=== PATIENT | female | born 1960 | race Caucasian/White ===

== ENCOUNTER → 2016-05-02 | Outpatient (CLI) | payer OTHER, MEDICAID ==
[~2016-05-02] MED LIST: ALBU8.5H3 INH; ASPI-496 PO; ATEN25TA PO; CEPH-368 PO; CHOL10003 PO; CIPR500T87 PO; DOCU-30 PO; ENAL20TA PO; FLUT10.6 INH; IBUP-1222 PO; IBUP800T PO; INSU100C SQ-INSULIN; INSU100V8 SQ; IRON SUPPLIMENT PO; LACT1TAB6 PO; LOVA20TA2 PO; METF10002 PO; METF500T4 PO; OMEP20TA2 PO; OXYC-302 PO; PREG150C PO; TRAM50TA2 PO; potassium otc PO
== END | disposition home or self-care (01) ==
LOC: WOUND 09:30
PROVIDERS: ATTEND Internal Medicine
DX: E11.621 Type 2 diabetes mellitus with foot ulcer (principal); E11.622 Type 2 diabetes mellitus with other skin ulcer; L97.511 Non-pressure chronic ulcer of other part of right foot limited to breakdown of skin; L97.811 Non-pressure chronic ulcer of other part of right lower leg limited to breakdown of skin; E78.5 Hyperlipidemia, unspecified; F12.90 Cannabis use, unspecified, uncomplicated; E11.22 Type 2 diabetes mellitus with diabetic chronic kidney disease; I12.9 Hypertensive chronic kidney disease with stage 1 through stage 4 chronic kidney disease, or unspecified chronic kidney disease; N18.9 Chronic kidney disease, unspecified; E66.01 Morbid (severe) obesity due to excess calories; Z68.38 Body mass index [BMI] 38.0-38.9, adult; E11.42 Type 2 diabetes mellitus with diabetic polyneuropathy; J45.909 Unspecified asthma, uncomplicated; Z79.4 Long term (current) use of insulin; Z87.891 Personal history of nicotine dependence; Z85.038 Personal history of other malignant neoplasm of large intestine; Z85.05 Personal history of malignant neoplasm of liver; Z92.21 Personal history of antineoplastic chemotherapy
CPT/HCPCS: 97597

== ENCOUNTER → 2016-05-09 | Outpatient (CLI) | payer OTHER, MEDICAID | END | disposition home or self-care (01) | LOC: WOUND 08:29 | PROVIDERS: ATTEND Internal Medicine | DX: S81.811D Laceration without foreign body, right lower leg, subsequent encounter (principal); E11.40 Type 2 diabetes mellitus with diabetic neuropathy, unspecified; Z92.21 Personal history of antineoplastic chemotherapy; Z85.038 Personal history of other malignant neoplasm of large intestine; Z85.05 Personal history of malignant neoplasm of liver; X58.XXXD Exposure to other specified factors, subsequent encounter; Z87.891 Personal history of nicotine dependence | CPT/HCPCS: 97597 ==

== ENCOUNTER → 2016-05-16 | Outpatient (CLI) | payer OTHER, MEDICAID | END | disposition home or self-care (01) | LOC: WOUND 09:30 | PROVIDERS: ATTEND Surgery | DX: E11.622 Type 2 diabetes mellitus with other skin ulcer (principal); L97.811 Non-pressure chronic ulcer of other part of right lower leg limited to breakdown of skin; E11.40 Type 2 diabetes mellitus with diabetic neuropathy, unspecified; E78.5 Hyperlipidemia, unspecified; Z92.21 Personal history of antineoplastic chemotherapy; Z85.05 Personal history of malignant neoplasm of liver; Z85.038 Personal history of other malignant neoplasm of large intestine; Z87.891 Personal history of nicotine dependence; E11.22 Type 2 diabetes mellitus with diabetic chronic kidney disease; I12.9 Hypertensive chronic kidney disease with stage 1 through stage 4 chronic kidney disease, or unspecified chronic kidney disease; N18.9 Chronic kidney disease, unspecified; E11.42 Type 2 diabetes mellitus with diabetic polyneuropathy; E66.01 Morbid (severe) obesity due to excess calories; E46 Unspecified protein-calorie malnutrition; Z68.38 Body mass index [BMI] 38.0-38.9, adult | CPT/HCPCS: G0463; WOU0463 ==

== ENCOUNTER → 2016-05-25 | Outpatient (CLI) | payer OTHER, MEDICAID ==
[~2016-05-25] MED LIST changes: +FURO20TA3 PO; +GUAI-44 PO; +LOPE1LIQ6 PO; +SERT50TA5 PO; +SPIR25TA PO
== END | disposition home or self-care (01) ==
LOC: WOUND 11:13
PROVIDERS: ATTEND Surgery
DX: E11.622 Type 2 diabetes mellitus with other skin ulcer (principal); L97.811 Non-pressure chronic ulcer of other part of right lower leg limited to breakdown of skin; E11.40 Type 2 diabetes mellitus with diabetic neuropathy, unspecified; E78.5 Hyperlipidemia, unspecified; Z85.038 Personal history of other malignant neoplasm of large intestine; Z87.891 Personal history of nicotine dependence
CPT/HCPCS: 99214; G0463; WOU0463

== ENCOUNTER 2016-05-28 08:22 | Inpatient (IN) | payer OTHER, MEDICAID ==
[~2016-05-28] VITALS: Ht 185.4 cm; Wt 169.7 kg
[~2016-05-28 08:22] MED LIST changes: -FURO20TA3 PO; -GUAI-44 PO; -LOPE1LIQ6 PO; -SERT50TA5 PO; -SPIR25TA PO
[2016-05-28] MEDS ORDERED: SODIUM CHLORIDE 0.9% 1,000 ML IV ONE (08:46)
[2016-05-28] MEDS ORDERED: SODIUM CHLORIDE FLUSH 10ML SYR IVF ONE ×2 (09:00→11:00)
[2016-05-28 09:44] LABS: ASPARTATE AMINO TRANSFERASE 22 U/L (15-37); BLOOD UREA NITROGEN 29 mg/dL (7-18)
[2016-05-28 09:58] LABS: DIFF TOTAL CELLS COUNTED 100 CELL DIFF
[2016-05-28 10:00] LABS: POLYCHROMASIA 1+
[2016-05-28] MEDS ORDERED: SODIUM POLY SULFONATE UDC 15 GM/60 ML PO ONE (10:00)
[2016-05-28] MEDS ORDERED: CALCIUM CHLORIDE 10%, 10ML SYR IVPush ONE (10:00)
[2016-05-28] MEDS ORDERED: INSULIN REGULAR 100 UNITS/ML, 3ML VIAL IVPush ONE (10:00)
[2016-05-28] MEDS ORDERED: DEXTROSE 50%, 50ML SYRINGE IVPush ONE (10:00)
[2016-05-28 10:01] LABS: ANISOCYTOSIS 1+
[2016-05-28] MEDS ORDERED: INSU100C SQ-INSULIN (10:10)
[2016-05-28] MEDS ORDERED: LOPE1LIQ6 PO (10:11)
[2016-05-28 10:24] LABS: VERIFY COUNTS? YES
[2016-05-28] MEDS ORDERED: DEXTROSE 50%, 50ML SYRINGE ONE (10:46)
[2016-05-28] MEDS ORDERED: CALCIUM CHLORIDE 10%, 10ML SYR ONE (10:46)
[2016-05-28] MEDS ORDERED: SODIUM POLYSTYRENE SULFONATE ORAL SUSP ONE (10:47)
[2016-05-28] MEDS ORDERED: INSULIN REGULAR 100 UNITS/ML, 3ML VIAL ONE ×2 (10:49→11:06)
[2016-05-28] MEDS ORDERED: INSULIN REGULAR 100 UNITS/ML, 3ML VIAL SQ-INSULIN SCH ×2 (11:00→13:04)
[2016-05-28] MEDS ORDERED: IBUPROFEN 200 MG TABLET PO PRN (11:00)
[2016-05-28] MEDS ORDERED: ACETAMINOPHEN 325 MG TABLET PO PRN (11:00)
[2016-05-28] MEDS ORDERED: LOPERAMIDE 2 MG CAPSULE PO PRN (11:00)
[2016-05-28] MEDS ORDERED: MORPHINE SULFATE 4 MG/ML, 1ML IVPush PRN (11:00)
[2016-05-28] MEDS: HEPARIN 5,000 UNITS/ML, 1ML SQ SCH ×2 (11:00→21:38)
[2016-05-28] MEDS ORDERED: TEMPLATE NON-FORMULARY MED. (Albuterol Sulfate (Proair Hfa) 2 PUFFS) INH PRN (11:00)
[2016-05-28] MEDS ORDERED: ENALAPRILAT 1.25 MG/ML, 2ML IVPush PRN (11:00)
[2016-05-28] MEDS ORDERED: ONDANSETRON 2MG/ML, 2ML IVP PRN (11:00)
[2016-05-28] MEDS ORDERED: TEMPLATE NON-FORMULARY MED. (Insulin Lispro** (Humalog**) 0 UNITS) SQ-INSULIN PRN (11:00)
[2016-05-28] MEDS ORDERED: DIPHENHYDRAMINE 25 MG CAPSULE PO ONE (11:00)
[2016-05-28] MEDS ORDERED: DEXTROSE 50%, 50ML VIAL IVPush ONE (11:30)
[2016-05-28] MEDS ORDERED: FUROSEMIDE 20 MG/2 ML IV ONE ×2 (11:30→19:00)
[2016-05-28 11:54] LABS: IS PT STATUS REG ER OR PRE ER? YES
[2016-05-28] MEDS ORDERED: FUROSEMIDE 40 MG/4 ML IV ONE ×2 (12:30→16:30)
[2016-05-28] MEDS ORDERED: ALBUTEROL SULFATE 2.5 MG/3 ML NPPB PRN (12:30)
[2016-05-28 13:10] VITALS: BP 170/76
[2016-05-28] MEDS ORDERED: predniSONE 50MG TABLET PO ONE (14:00)
[2016-05-28] MEDS ORDERED: INSULIN REGULAR 100 UNITS/ML, 3ML VIAL SQ-INSULIN STA (14:03)
[2016-05-28 14:20] VITALS: BP 165/75
[2016-05-28 16:52] LABS: BLOOD UREA NITROGEN 32 mg/dL (7-18)
[2016-05-28] MEDS: INSULIN REGULAR 100 UNITS/ML, 3ML VIAL SQ-INSULIN SCH ×2 (17:00→21:00)
[2016-05-28] MEDS ORDERED: TEMPLATE NON-FORMULARY MED. (Insulin Lispro** (Humalog**) 0 UNITS) SQ-INSULIN SCH (17:00)
[2016-05-28 17:05] LABS: ASPARTATE AMINO TRANSFERASE 17 U/L (15-37)
[2016-05-28 17:38] LABS: IS PT STATUS REG ER OR PRE ER? NO
[2016-05-28 19:00] VITALS: BP 178/81
[2016-05-28] MEDS: FERROUS SULFATE 325 MG TABLET PO SCH (19:04)
[2016-05-28] MEDS: LANTUS 30 UNIT SQ-INSULIN SCH (19:05)
[2016-05-28] MEDS ORDERED: LANTUS 30 UNIT SQ SCH (21:00)
[2016-05-28] MEDS ORDERED: INSULIN DETEMIR 100 UNITS/ML, PEN SQ-INSULIN SCH (21:00)
[2016-05-28] MEDS: TEMPLATE NON-FORMULARY MED. (Insulin Lispro** (Humalog**) 0 UNITS) SQ-INSULIN SCH (21:00)
[2016-05-28] MEDS: ATENOLOL 50 MG TABLET PO SCH (21:37)
[2016-05-28] MEDS: LOVASTATIN 40 MG TABLET PO SCH (21:37)
[2016-05-28] MEDS: LACTOBACILLUS CHEW TABLET PO SCH (21:37)
[2016-05-29 03:53] VITALS: BP 165/76
[2016-05-29 04:10] LABS: BLOOD UREA NITROGEN 35 mg/dL (7-18)
[2016-05-29] MEDS: LANTUS 40 UNIT SQ SCH (06:00)
[2016-05-29] MEDS: HEPARIN 5,000 UNITS/ML, 1ML SQ SCH ×3 (06:00→21:50)
[2016-05-29 06:41] VITALS: BP 154/67
[2016-05-29] MEDS: INSULIN REGULAR 100 UNITS/ML, 3ML VIAL SQ-INSULIN SCH ×4 (07:00→21:00)
[2016-05-29] MEDS: TEMPLATE NON-FORMULARY MED. (Insulin Lispro** (Humalog**) 0 UNITS) SQ-INSULIN SCH ×4 (07:00→21:00)
[2016-05-29] MEDS ORDERED: INSULIN ASPART 100 UNITS/ML, PEN SQ-INSULIN SCH ×2 (07:00)
[2016-05-29] MEDS ORDERED: FUROSEMIDE 20 MG/2 ML IV SCH (09:00)
[2016-05-29] MEDS ORDERED: FUROSEMIDE 20 MG/2 ML IV ONE (09:00)
[2016-05-29] MEDS: SERTRALINE 50MG TABLET PO SCH (09:08)
[2016-05-29] MEDS: ATENOLOL 50 MG TABLET PO SCH ×2 (09:09→21:50)
[2016-05-29] MEDS: FUROSEMIDE 20 MG/2 ML IV SCH ×2 (09:09→16:36)
[2016-05-29] MEDS: FERROUS SULFATE 325 MG TABLET PO SCH ×2 (09:09→16:41)
[2016-05-29] MEDS: LACTOBACILLUS CHEW TABLET PO SCH ×2 (09:09→21:50)
[2016-05-29] MEDS: ONDANSETRON ODT 4 MG PO PRN (10:14)
[2016-05-29] MEDS: ENALAPRIL 20MG TABLET PO SCH (10:14)
[2016-05-29] MEDS ORDERED: MAGNESIUM SULFATE PMX 2GM/50ML 50 ML IV ONE (12:00)
[2016-05-29] MEDS ORDERED: SODIUM CHLORIDE 0.45% 500 ML IV ONE (12:30)
[2016-05-29] MEDS ORDERED: SODIUM BICARB 8.4% IVPush SCH (12:30)
[2016-05-29] MEDS ORDERED: SODIUM CHLORIDE 0.45% IVPush SCH (12:30)
[2016-05-29 12:58] VITALS: BP 144/72
[2016-05-29 19:58] VITALS: BP 163/74
[2016-05-29] MEDS: LANTUS 30 UNIT SQ-INSULIN SCH (21:00)
[2016-05-29] MEDS: LOVASTATIN 40 MG TABLET PO SCH (21:50)
[2016-05-30 00:32] VITALS: BP 170/78
[2016-05-30 02:04] VITALS: BP 143/68
[2016-05-30] MEDS: ONDANSETRON ODT 4 MG PO PRN ×2 (05:52→12:49)
[2016-05-30] MEDS: LANTUS 40 UNIT SQ SCH (06:00)
[2016-05-30 06:01] LABS: ASPARTATE AMINO TRANSFERASE 15 U/L (15-37); BLOOD UREA NITROGEN 34 mg/dL (7-18)
[2016-05-30] MEDS: HEPARIN 5,000 UNITS/ML, 1ML SQ SCH (06:18)
[2016-05-30] MEDS ORDERED: LANTUS 40 UNIT SQ SCH (07:00)
[2016-05-30] MEDS: TEMPLATE NON-FORMULARY MED. (Insulin Lispro** (Humalog**) 0 UNITS) SQ-INSULIN SCH ×2 (07:00→11:00)
[2016-05-30 08:14] VITALS: BP 163/73
[2016-05-30] MEDS ORDERED: SPIRONOLACTONE 25 MG TABLET PO SCH (09:00)
[2016-05-30] MEDS ORDERED: FUROSEMIDE 20 MG TABLET PO SCH (09:00)
[2016-05-30] MEDS ORDERED: LOPERAMIDE 2 MG CAPSULE PO SCH (09:00)
[2016-05-30] MEDS: FERROUS SULFATE 325 MG TABLET PO SCH (09:03)
[2016-05-30] MEDS: LACTOBACILLUS CHEW TABLET PO SCH (09:03)
[2016-05-30] MEDS: SERTRALINE 50MG TABLET PO SCH (09:04)
[2016-05-30] MEDS: ATENOLOL 50 MG TABLET PO SCH (09:04)
[2016-05-30] MEDS: ENALAPRIL 20MG TABLET PO SCH (09:04)
[2016-05-30] MEDS ORDERED: FURO20TA3 PO (10:22)
[2016-05-30] MEDS ORDERED: SPIR25TA PO (10:22)
[2016-05-30] MEDS ORDERED: SERT50TA5 PO (10:22)
[2016-05-30] MEDS ORDERED: GUAI-44 PO (14:21)
[2016-05-31] MEDS ORDERED: LANTUS 40 UNIT SQ SCH (07:00)
== END 2016-05-30 14:50 | disposition home health service (06) | DRG 189 ==
LOC: ED 10:34 → EDIP 10:35 → ED 11:59 → 4WST 12:43 → DCLOUNGE 05-30 13:46
PROVIDERS: ADMIT Family Medicine; ATTEND Family Medicine
DX: J81.0 Acute pulmonary edema (principal); C18.9 Malignant neoplasm of colon, unspecified; N17.9 Acute kidney failure, unspecified; N18.4 Chronic kidney disease, stage 4 (severe); E87.2 Acidosis; C78.7 Secondary malignant neoplasm of liver and intrahepatic bile duct; D64.9 Anemia, unspecified; I13.0 Hypertensive heart and chronic kidney disease with heart failure and stage 1 through stage 4 chronic kidney disease, or unspecified chronic kidney disease; E87.5 Hyperkalemia; J45.909 Unspecified asthma, uncomplicated; E11.22 Type 2 diabetes mellitus with diabetic chronic kidney disease; E11.42 Type 2 diabetes mellitus with diabetic polyneuropathy; E61.1 Iron deficiency; E78.5 Hyperlipidemia, unspecified; F32.9 Major depressive disorder, single episode, unspecified; I50.9 Heart failure, unspecified; J44.9 Chronic obstructive pulmonary disease, unspecified; K80.20 Calculus of gallbladder without cholecystitis without obstruction; T45.1X5A Adverse effect of antineoplastic and immunosuppressive drugs, initial encounter; Z79.4 Long term (current) use of insulin; Z79.899 Other long term (current) drug therapy; Z85.038 Personal history of other malignant neoplasm of large intestine; Z85.05 Personal history of malignant neoplasm of liver; Z88.8 Allergy status to other drugs, medicaments and biological substances; Z88.5 Allergy status to narcotic agent; Z82.49 Family history of ischemic heart disease and other diseases of the circulatory system; Z83.3 Family history of diabetes mellitus; Z82.5 Family history of asthma and other chronic lower respiratory diseases; E86.0 Dehydration
CPT/HCPCS: 36415; 71010; 74177; 80048; 80053; 81003; 82040; 82962; 83036; 83605; 83735; 83880; 84100; 84145; 84484; 85025; 87040; 87070; 87205; 93005; 93306; 96361; 96374; 96375; J1644; J1815; J2405; Q0162; J1940; J3475; J7030; J7512; Q0163

== ENCOUNTER 2016-06-04 09:14 | Day surgery (SDC) | payer OTHER, MEDICAID ==
[~2016-06-04] VITALS: Ht 185.4 cm; Wt 158.0 kg
[~2016-06-04 09:14] MED LIST changes: +FURO20TA3 PO; +GUAI-44 PO; +LOPE1LIQ6 PO; +SERT50TA5 PO; +SPIR25TA PO
[2016-06-04 09:37] VITALS: BP 125/79
[2016-06-04] MEDS ORDERED: LIDOCAINE 1%, 20ML ONE (09:49)
[2016-06-04] MEDS ORDERED: PLEASE ENTER HEIGHT AND WEIGHT MC SCH (10:00)
[2016-06-04] MEDS ORDERED: FENTANYL PF 100 MCG/2ML ONE (10:19)
[2016-06-04] MEDS ORDERED: NALOXONE 1 MG/ML, 2ML ONE (10:20)
[2016-06-04] MEDS ORDERED: MIDAZOLAM 1 MG/ML, 5ML ONE (10:20)
[2016-06-04] MEDS ORDERED: FLUMAZENIL 0.1 MG/1 ML, 5ML ONE (10:20)
[2016-06-04] MEDS ORDERED: CEFAZOLIN PMX 1GM/50ML 50 ML ONE (10:53)
== END 2016-06-04 13:07 | disposition home or self-care (01) ==
LOC: RAD 09:14
PROVIDERS: ATTEND Internal Medicine Hematology & Oncology
DX: Z51.11 Encounter for antineoplastic chemotherapy (principal); C18.9 Malignant neoplasm of colon, unspecified; J45.909 Unspecified asthma, uncomplicated; F12.90 Cannabis use, unspecified, uncomplicated; Z85.05 Personal history of malignant neoplasm of liver; D63.0 Anemia in neoplastic disease; I11.9 Hypertensive heart disease without heart failure; E11.40 Type 2 diabetes mellitus with diabetic neuropathy, unspecified
CPT/HCPCS: 36561; 76937; 77001; 82962; C1788; J0690; J1642; J2250; J3010; J3490; 36569; J2310

== ENCOUNTER → 2016-06-06 | Outpatient (CLI) | payer OTHER, MEDICAID | END | disposition home or self-care (01) | LOC: WOUND 10:30 | PROVIDERS: ATTEND Internal Medicine | DX: E11.621 Type 2 diabetes mellitus with foot ulcer (principal); L97.511 Non-pressure chronic ulcer of other part of right foot limited to breakdown of skin; E11.622 Type 2 diabetes mellitus with other skin ulcer; L97.811 Non-pressure chronic ulcer of other part of right lower leg limited to breakdown of skin; E11.40 Type 2 diabetes mellitus with diabetic neuropathy, unspecified; E11.42 Type 2 diabetes mellitus with diabetic polyneuropathy; Z92.21 Personal history of antineoplastic chemotherapy; E78.5 Hyperlipidemia, unspecified; Z85.038 Personal history of other malignant neoplasm of large intestine; Z68.38 Body mass index [BMI] 38.0-38.9, adult; E78.00 Pure hypercholesterolemia, unspecified; E66.01 Morbid (severe) obesity due to excess calories; E11.22 Type 2 diabetes mellitus with diabetic chronic kidney disease; I13.0 Hypertensive heart and chronic kidney disease with heart failure and stage 1 through stage 4 chronic kidney disease, or unspecified chronic kidney disease; N18.4 Chronic kidney disease, stage 4 (severe); I50.9 Heart failure, unspecified; Z79.4 Long term (current) use of insulin | CPT/HCPCS: 97597 ==

== ENCOUNTER → 2016-06-20 | Outpatient (CLI) | payer OTHER, MEDICAID | END | disposition home or self-care (01) | LOC: WOUND 10:45 | PROVIDERS: ATTEND Internal Medicine | DX: E11.622 Type 2 diabetes mellitus with other skin ulcer (principal); L97.811 Non-pressure chronic ulcer of other part of right lower leg limited to breakdown of skin; E11.40 Type 2 diabetes mellitus with diabetic neuropathy, unspecified; Z92.21 Personal history of antineoplastic chemotherapy; E78.5 Hyperlipidemia, unspecified; E66.01 Morbid (severe) obesity due to excess calories; Z68.38 Body mass index [BMI] 38.0-38.9, adult; E11.22 Type 2 diabetes mellitus with diabetic chronic kidney disease; I13.0 Hypertensive heart and chronic kidney disease with heart failure and stage 1 through stage 4 chronic kidney disease, or unspecified chronic kidney disease; N18.4 Chronic kidney disease, stage 4 (severe); I50.9 Heart failure, unspecified; E78.00 Pure hypercholesterolemia, unspecified; J44.9 Chronic obstructive pulmonary disease, unspecified; E46 Unspecified protein-calorie malnutrition; F32.9 Major depressive disorder, single episode, unspecified; Z85.038 Personal history of other malignant neoplasm of large intestine; Z85.05 Personal history of malignant neoplasm of liver; Z87.891 Personal history of nicotine dependence | CPT/HCPCS: 97597 ==

== ENCOUNTER → 2016-07-04 | Outpatient (CLI) | payer OTHER, MEDICAID | END | disposition home or self-care (01) | LOC: WOUND 10:30 | PROVIDERS: ATTEND Internal Medicine | DX: E11.622 Type 2 diabetes mellitus with other skin ulcer (principal); L97.811 Non-pressure chronic ulcer of other part of right lower leg limited to breakdown of skin; L98.491 Non-pressure chronic ulcer of skin of other sites limited to breakdown of skin; Z85.05 Personal history of malignant neoplasm of liver; E78.5 Hyperlipidemia, unspecified; E66.01 Morbid (severe) obesity due to excess calories; Z68.38 Body mass index [BMI] 38.0-38.9, adult; E11.22 Type 2 diabetes mellitus with diabetic chronic kidney disease; I13.0 Hypertensive heart and chronic kidney disease with heart failure and stage 1 through stage 4 chronic kidney disease, or unspecified chronic kidney disease; N18.4 Chronic kidney disease, stage 4 (severe); I50.9 Heart failure, unspecified; E78.00 Pure hypercholesterolemia, unspecified; E11.40 Type 2 diabetes mellitus with diabetic neuropathy, unspecified; Z85.038 Personal history of other malignant neoplasm of large intestine; Z87.891 Personal history of nicotine dependence | CPT/HCPCS: 97597 ==

== ENCOUNTER → 2016-07-11 | Outpatient (CLI) | payer OTHER, MEDICAID | END | disposition home or self-care (01) | LOC: WOUND 13:13 | PROVIDERS: ATTEND Internal Medicine | DX: E11.622 Type 2 diabetes mellitus with other skin ulcer (principal); L97.811 Non-pressure chronic ulcer of other part of right lower leg limited to breakdown of skin; E11.40 Type 2 diabetes mellitus with diabetic neuropathy, unspecified; L89.41 Pressure ulcer of contiguous site of back, buttock and hip, stage 1; E78.5 Hyperlipidemia, unspecified; Z85.038 Personal history of other malignant neoplasm of large intestine; Z85.05 Personal history of malignant neoplasm of liver; E11.22 Type 2 diabetes mellitus with diabetic chronic kidney disease; I13.0 Hypertensive heart and chronic kidney disease with heart failure and stage 1 through stage 4 chronic kidney disease, or unspecified chronic kidney disease; N18.4 Chronic kidney disease, stage 4 (severe); I50.9 Heart failure, unspecified; E66.01 Morbid (severe) obesity due to excess calories; E78.00 Pure hypercholesterolemia, unspecified; Z87.891 Personal history of nicotine dependence | CPT/HCPCS: 11042 ==

== ENCOUNTER → 2016-07-11 | Outpatient (CLI) | payer OTHER, MEDICAID | END | disposition home or self-care (01) | LOC: RAD 09:38 | PROVIDERS: ATTEND Internal Medicine Hematology & Oncology | DX: C78.7 Secondary malignant neoplasm of liver and intrahepatic bile duct (principal); C18.4 Malignant neoplasm of transverse colon; R16.0 Hepatomegaly, not elsewhere classified; K80.20 Calculus of gallbladder without cholecystitis without obstruction; K76.9 Liver disease, unspecified; E11.40 Type 2 diabetes mellitus with diabetic neuropathy, unspecified; M51.36 Other intervertebral disc degeneration, lumbar region | CPT/HCPCS: 74183; J1642 ==

== ENCOUNTER → 2016-07-18 | Outpatient (CLI) | payer OTHER, MEDICAID | END | disposition home or self-care (01) | LOC: WOUND 10:30 | PROVIDERS: ATTEND Internal Medicine | DX: E11.622 Type 2 diabetes mellitus with other skin ulcer (principal); L97.811 Non-pressure chronic ulcer of other part of right lower leg limited to breakdown of skin; L89.41 Pressure ulcer of contiguous site of back, buttock and hip, stage 1; E11.40 Type 2 diabetes mellitus with diabetic neuropathy, unspecified; E78.5 Hyperlipidemia, unspecified; Z85.038 Personal history of other malignant neoplasm of large intestine; Z87.891 Personal history of nicotine dependence | CPT/HCPCS: 97597 ==

== ENCOUNTER → 2016-07-25 | Outpatient (CLI) | payer OTHER, MEDICAID | END | disposition home or self-care (01) | LOC: WOUND 10:28 | PROVIDERS: ATTEND Internal Medicine | DX: E11.622 Type 2 diabetes mellitus with other skin ulcer (principal); L97.811 Non-pressure chronic ulcer of other part of right lower leg limited to breakdown of skin; L89.41 Pressure ulcer of contiguous site of back, buttock and hip, stage 1; E11.40 Type 2 diabetes mellitus with diabetic neuropathy, unspecified; Z85.038 Personal history of other malignant neoplasm of large intestine; E78.5 Hyperlipidemia, unspecified; E11.22 Type 2 diabetes mellitus with diabetic chronic kidney disease; I13.0 Hypertensive heart and chronic kidney disease with heart failure and stage 1 through stage 4 chronic kidney disease, or unspecified chronic kidney disease; N18.4 Chronic kidney disease, stage 4 (severe); I50.9 Heart failure, unspecified; E66.01 Morbid (severe) obesity due to excess calories; Z68.38 Body mass index [BMI] 38.0-38.9, adult; E78.00 Pure hypercholesterolemia, unspecified; J44.9 Chronic obstructive pulmonary disease, unspecified; Z87.891 Personal history of nicotine dependence | CPT/HCPCS: 97597 ==

== ENCOUNTER → 2016-08-01 | Outpatient (CLI) | payer OTHER, MEDICAID | END | disposition home or self-care (01) | LOC: WOUND 10:30 | PROVIDERS: ATTEND Internal Medicine | DX: E11.622 Type 2 diabetes mellitus with other skin ulcer (principal); L97.811 Non-pressure chronic ulcer of other part of right lower leg limited to breakdown of skin; J44.9 Chronic obstructive pulmonary disease, unspecified; E11.22 Type 2 diabetes mellitus with diabetic chronic kidney disease; I13.0 Hypertensive heart and chronic kidney disease with heart failure and stage 1 through stage 4 chronic kidney disease, or unspecified chronic kidney disease; N18.4 Chronic kidney disease, stage 4 (severe); I50.9 Heart failure, unspecified; E78.5 Hyperlipidemia, unspecified; E66.01 Morbid (severe) obesity due to excess calories; Z68.38 Body mass index [BMI] 38.0-38.9, adult; E78.00 Pure hypercholesterolemia, unspecified; F32.9 Major depressive disorder, single episode, unspecified; Z85.038 Personal history of other malignant neoplasm of large intestine; Z85.05 Personal history of malignant neoplasm of liver; Z87.891 Personal history of nicotine dependence | CPT/HCPCS: 97597 ==

== ENCOUNTER → 2016-08-08 | Outpatient (CLI) | payer OTHER, MEDICAID ==
[~2016-08-08] MED LIST changes: +hydrALAzine 20 MG/ML, 1ML ONE
== END | disposition home or self-care (01) ==
LOC: WOUND 10:30
PROVIDERS: ATTEND Internal Medicine
DX: S81.811D Laceration without foreign body, right lower leg, subsequent encounter (principal); E11.40 Type 2 diabetes mellitus with diabetic neuropathy, unspecified; J44.9 Chronic obstructive pulmonary disease, unspecified; E11.22 Type 2 diabetes mellitus with diabetic chronic kidney disease; I13.0 Hypertensive heart and chronic kidney disease with heart failure and stage 1 through stage 4 chronic kidney disease, or unspecified chronic kidney disease; N18.4 Chronic kidney disease, stage 4 (severe); I50.9 Heart failure, unspecified; E78.5 Hyperlipidemia, unspecified; F32.9 Major depressive disorder, single episode, unspecified; E66.01 Morbid (severe) obesity due to excess calories; Z68.38 Body mass index [BMI] 38.0-38.9, adult; E78.00 Pure hypercholesterolemia, unspecified; Z92.21 Personal history of antineoplastic chemotherapy; Z85.038 Personal history of other malignant neoplasm of large intestine; Z85.05 Personal history of malignant neoplasm of liver; Z87.891 Personal history of nicotine dependence; X58.XXXD Exposure to other specified factors, subsequent encounter
CPT/HCPCS: 97597

== ENCOUNTER → 2016-08-29 | Outpatient (CLI) | payer OTHER, MEDICAID ==
[~2016-08-29] MED LIST changes: -hydrALAzine 20 MG/ML, 1ML ONE
== END | disposition home or self-care (01) ==
LOC: WOUND 11:15
PROVIDERS: ATTEND Internal Medicine
DX: E11.622 Type 2 diabetes mellitus with other skin ulcer (principal); L97.811 Non-pressure chronic ulcer of other part of right lower leg limited to breakdown of skin; L89.41 Pressure ulcer of contiguous site of back, buttock and hip, stage 1; E11.40 Type 2 diabetes mellitus with diabetic neuropathy, unspecified; E78.5 Hyperlipidemia, unspecified; J44.9 Chronic obstructive pulmonary disease, unspecified; E11.22 Type 2 diabetes mellitus with diabetic chronic kidney disease; I13.0 Hypertensive heart and chronic kidney disease with heart failure and stage 1 through stage 4 chronic kidney disease, or unspecified chronic kidney disease; N18.4 Chronic kidney disease, stage 4 (severe); I50.9 Heart failure, unspecified; F32.9 Major depressive disorder, single episode, unspecified; E66.01 Morbid (severe) obesity due to excess calories; E78.00 Pure hypercholesterolemia, unspecified; Z92.21 Personal history of antineoplastic chemotherapy; Z85.05 Personal history of malignant neoplasm of liver; Z85.038 Personal history of other malignant neoplasm of large intestine; Z68.38 Body mass index [BMI] 38.0-38.9, adult; Z87.891 Personal history of nicotine dependence
CPT/HCPCS: 97597

== ENCOUNTER → 2016-09-12 | Outpatient (CLI) | payer OTHER, MEDICAID | END | disposition home or self-care (01) | LOC: WOUND 11:00 | PROVIDERS: ATTEND Internal Medicine | DX: E11.622 Type 2 diabetes mellitus with other skin ulcer (principal); L89.41 Pressure ulcer of contiguous site of back, buttock and hip, stage 1; L98.411 Non-pressure chronic ulcer of buttock limited to breakdown of skin; L98.491 Non-pressure chronic ulcer of skin of other sites limited to breakdown of skin; E11.40 Type 2 diabetes mellitus with diabetic neuropathy, unspecified; E78.5 Hyperlipidemia, unspecified; E11.22 Type 2 diabetes mellitus with diabetic chronic kidney disease; I13.0 Hypertensive heart and chronic kidney disease with heart failure and stage 1 through stage 4 chronic kidney disease, or unspecified chronic kidney disease; N18.4 Chronic kidney disease, stage 4 (severe); I50.9 Heart failure, unspecified; J44.9 Chronic obstructive pulmonary disease, unspecified; F32.9 Major depressive disorder, single episode, unspecified; E66.01 Morbid (severe) obesity due to excess calories; E78.00 Pure hypercholesterolemia, unspecified; Z68.38 Body mass index [BMI] 38.0-38.9, adult; Z85.05 Personal history of malignant neoplasm of liver; Z85.038 Personal history of other malignant neoplasm of large intestine; Z87.891 Personal history of nicotine dependence | CPT/HCPCS: G0463; WOU0463 ==

== ENCOUNTER → 2016-10-24 | Outpatient (CLI) | payer OTHER, MEDICAID ==
[~2016-10-24] MED LIST changes: -ALBU8.5H3 INH; +ALBU8.5H8 INH; +DOCU-131 PO; -DOCU-30 PO; +GADOBUTROL 10 MMOL/10 ML VIAL ONE; +GUAI-105 PO; -GUAI-44 PO; +IBUP-1223 PO; -IBUP800T PO; -OMEP20TA2 PO; +OMEP20TA9 PO
== END | disposition home or self-care (01) ==
LOC: EDSTATUS 12:15 → RAD 15:08
PROVIDERS: ATTEND Internal Medicine Hematology & Oncology
DX: K80.20 Calculus of gallbladder without cholecystitis without obstruction (principal); R16.0 Hepatomegaly, not elsewhere classified; K76.0 Fatty (change of) liver, not elsewhere classified; K76.89 Other specified diseases of liver; N28.1 Cyst of kidney, acquired; C18.4 Malignant neoplasm of transverse colon; C78.7 Secondary malignant neoplasm of liver and intrahepatic bile duct
CPT/HCPCS: 74183; A9585; J1642

== ENCOUNTER → 2017-02-21 | Outpatient (CLI) | payer OTHER, MEDICAID ==
[~2017-02-21] MED LIST changes: -GADOBUTROL 10 MMOL/10 ML VIAL ONE; -GUAI-105 PO; +GUAI-106 PO; +OMNIPAQUE 350 MG/ML, 100ML BOTTLE ONE
[2017-02-21 12:02] LABS: CREATININE 1.42 mg/dL (0.55-1.02)
== END ==
LOC: RAD 10:31
PROVIDERS: ATTEND Internal Medicine Hematology & Oncology
DX: K76.0 Fatty (change of) liver, not elsewhere classified (principal); R91.8 Other nonspecific abnormal finding of lung field; K80.20 Calculus of gallbladder without cholecystitis without obstruction; E11.9 Type 2 diabetes mellitus without complications; C18.4 Malignant neoplasm of transverse colon; Z77.098 Contact with and (suspected) exposure to other hazardous, chiefly nonmedicinal, chemicals
CPT/HCPCS: 36415; 71260; 74183; 82565; J1642; Q9967